=== PATIENT | male | born 1955 | race African-American/Black ===

== ENCOUNTER 2018-04-04 03:37 | Emergency (ER) | payer MEDICAID ==
[~2018-04-04] VITALS: Ht 185.4 cm; Wt 137.0 kg
[~2018-04-04 03:37] MED LIST: COR3 PO; DOCU-138 PO; FURO10VI3 PO; LOSA25TA3 PO; POTA20TA82 PO
[2018-04-04] MEDS ORDERED: ACETAMINOPHEN 325MG TABLET PO ONE (05:15)
[2018-04-04] MEDS ORDERED: LEVOFLOXACIN 250MG TABLET PO ONE (05:15)
[2018-04-04 05:26] VITALS: BP 146/85
== END 2018-04-04 05:29 | disposition home or self-care (01) ==
LOC: ER 03:37
DX: L03.116 Cellulitis of left lower limb (principal); R60.0 Localized edema; I11.0 Hypertensive heart disease with heart failure; I50.9 Heart failure, unspecified; E11.9 Type 2 diabetes mellitus without complications; Z95.0 Presence of cardiac pacemaker
CPT/HCPCS: 99283

== ENCOUNTER 2019-01-08 10:55 | Emergency (ER) | payer OTHER, MEDICAID ==
[~2019-01-08] VITALS: Ht 185.4 cm; Wt 141.0 kg
[2019-01-08 14:48] VITALS: BP 128/90
== END 2019-01-08 15:00 | disposition home or self-care (01) ==
LOC: ER 10:55
DX: M79.89 Other specified soft tissue disorders (principal); I11.0 Hypertensive heart disease with heart failure; I50.9 Heart failure, unspecified; E11.9 Type 2 diabetes mellitus without complications; Z87.891 Personal history of nicotine dependence; Z95.0 Presence of cardiac pacemaker; Z79.899 Other long term (current) drug therapy
CPT/HCPCS: 93971; 99284

== ENCOUNTER 2019-02-19 17:57 | Emergency (ER) | payer MEDICAID, OTHER ==
[~2019-02-19] VITALS: Ht 185.4 cm; Wt 141.0 kg
[2019-02-19] MEDS ORDERED: VISCOUS LIDOCAINE 2% 15 ML UDC MM PRN (21:00)
[2019-02-19 22:00] VITALS: BP 123/61
== END 2019-02-19 22:00 | disposition home or self-care (01) ==
LOC: ER 17:57
DX: K64.9 Unspecified hemorrhoids (principal); I11.0 Hypertensive heart disease with heart failure; I50.9 Heart failure, unspecified; E11.9 Type 2 diabetes mellitus without complications; Z79.899 Other long term (current) drug therapy; Z95.0 Presence of cardiac pacemaker
CPT/HCPCS: 99283

== ENCOUNTER 2019-09-22 14:39 | Emergency (ER) | payer MEDICAID ==
[~2019-09-22] VITALS: Ht 185.4 cm; Wt 137.0 kg
[2019-09-22 16:54] LABS: BASOPHILS % 1.1 % (0.0-2.0); CHLORIDE 104 mEq/L (98-107); EOSINOPHILS % 3.3 % (0.0-5.0); HEMOGLOBIN. 15.9 g/dL (14.0-18.0); LYMPHOCYTES % 31.5 % (20.0-50.0); MEAN CORPUSCULAR HEMOGLOBIN 30.4 pg (28.0-32.0); MEAN PLATELET VOLUME 9.8 fl (7.4-10.4); MONOCYTES % 7.2 % (2.0-8.0); NEUTROPHILS % 56.9 % (40.0-76.0); PLATELET 225 x1000/uL (130-400); RED BLOOD CELL COUNT 5.23 mill/uL (4.7-6.1); RED CELL DISTRIBUTION WIDTH 14.2 % (11.6-14.6)
[2019-09-22] MEDS ORDERED: KETOROLAC 15MG/ML VIAL IV NR (21:45)
[2019-09-22] MEDS ORDERED: KETOROLAC 30MG/ML VIAL IM ONE (22:00)
[2019-09-22 22:23] VITALS: BP 142/97
== END 2019-09-22 22:24 | disposition home or self-care (01) ==
LOC: ER 14:39
DX: R51 Headache (principal); E11.65 Type 2 diabetes mellitus with hyperglycemia; I11.0 Hypertensive heart disease with heart failure; I50.9 Heart failure, unspecified; Z95.0 Presence of cardiac pacemaker
CPT/HCPCS: 36415; 71045; 83880; 84484; 93005; 99284